=== PATIENT | male | born 1970 | race Caucasian/White ===

== ENCOUNTER 2025-01-14 10:21 | Outpatient (CLI) | payer MEDICARE, SELFPAY ==
[2025-01-14 10:22] LABS: HCT 43.4 % (40.0-50.0); HGB 15.2 g/dL (13.5-17.5); MCH 28.8 pg (27.0-33.0); MCHC 35.0 % (32.0-36.0); MCV 82 fL (80-95); MPV 9.8 fL (8.0-11.0); Platelet Count 183 10^3/uL (130-400); RBC 5.27 10^6/uL (4.36-5.78); RDW 13.2 % (11.8-14.1); RDW-SD 39.0 fL; WBC 7.46 10^3/uL (4.4-10.8)
[2025-01-14 10:42] LABS: Hemoglobin A1C 7.5 % (<5.7)
[2025-01-14 11:24] LABS: ALT 40 U/L (10-49); AST 31 U/L (<34); Albumin 4.6 g/dL (3.4-5.0); Alkaline Phosphatase 77 U/L (46-116); Anion Gap 9.4 mmol/L (3-11); BUN 14 mg/dL (9-23); Bilirubin, Total 0.90 mg/dL (0.2-1.2); CO2 24.6 mmol/L (20.0-31.0); Calcium 9.4 mg/dL (8.3-10.6); Chloride 106 mmol/L (98-107); Cholesterol 142 mg/dL (<200); Glucose 174 mg/dL (74-106); HDL Cholesterol 36 mg/dL (>40); Potassium 3.9 mmol/L (3.5-5.1); Sodium 140 mmol/L (136-145); TSH 2.40 uIU/mL (0.55-4.78); Total Protein 7.5 g/dL (5.7-8.2); Vitamin D 25 Total 18 ng/mL (30-100)
== END 2025-01-14 10:22 | disposition home or self-care (01) ==
LOC: LBO 10:24
PROVIDERS: Visit Provider Family Medicine
DX: Z00.00 Encounter for general adult medical examination without abnormal findings (principal)
CPT/HCPCS: 36415; 80053; 80061; 82306; 85027; 83036; 84443